=== PATIENT | male | born 1990 | race African-American/Black ===

== ENCOUNTER 2017-07-01 16:41 | Emergency (ER) | payer OTHER ==
[~2017-07-01] VITALS: Ht 182.9 cm; Wt 77.1 kg
--- NOTE | 2017-07-01 16:45 | NUR ---
BIB SELF, C/O BILAT CP X4 HRS [employer] HAS SICKLE CELL, NAD NOTED, VSS, RESP EVEN AND UNLABORED, PT PUT ON HOSPITAL GOWN AND MONITOR WAITING FOR MD BASILIO.
[2017-07-01] MEDS ORDERED: HYDROCODONE/APAP 10/325MG 1 EA TABLET PO ONE ×2 (17:00→20:00)
[2017-07-01] MEDS ORDERED: HYDROCODONE/APAP 10/325MG 1 EA TABLET ONE (17:19)
[2017-07-01 17:34] LABS: CALCIUM, SERUM 8.8 mg/dL (8.5-10.1); CREATININE 0.9 mg/dL (0.6-1.3); POTASSIUM 4.2 mmol/L (3.5-5.1)
--- NOTE | 2017-07-01 19:00 | NUR ---
Patient is resting comfortably in bed with eyes closed. Easily aroused. VSS
[2017-07-01 19:04] VITALS: BP 115/79
[2017-07-01 19:27] LABS: HEMATOCRIT 31 % (39-51); HEMOGLOBIN 10.3 g/dL (13.5-17.5); MEAN CORPUSCULAR HEMOGLOBIN 29 PG (26.0-33.0); MEAN CORPUSCULAR HGB CONC 34 g/dl (31.0-36.0); MEAN CORPUSCULAR VOLUME 85 fL (80-96); PLATELET COUNT (AUTO) 393 /CMM (150-450); RDW COEFFICIENT OF VARIATION 17.4 (11.5-15.0); WHITE BLOOD COUNT (AUTO) 13.3 K/uL (4.3-11.0)
[2017-07-01 22:39] LABS: BAND % (MANUAL) 3 % (0.0-5.0); EOSINOPHILS % (MANUAL) 4 % (0-4); LYMPHOCYTES % (MANUAL) 19 % (16-48); MONOCYTES % (MANUAL) 8 % (0-11.0); NEUTROPHILS % (MANUAL) 65 (42-76); REACTIVE LYMPHOCYTES 1 % (0-0)
== END 2017-07-01 20:13 | disposition left against medical advice (07) ==
LOC: ER 16:50
DX: D57.00 Hb-SS disease with crisis, unspecified (principal); F17.200 Nicotine dependence, unspecified, uncomplicated
CPT/HCPCS: 36415; 71010; 80048; 85025; 85045; 93005; 99285; A4606; Z7610